=== PATIENT | male | born 1960 | race African-American/Black ===

== ENCOUNTER 2016-03-27 10:26 | Inpatient (IN) | payer BC, OTHER ==
[~2016-03-27] VITALS: Ht 193 cm; Wt 95.0 kg
[2016-03-27] MEDS ORDERED: SOD CHLORIDE 0.9% 500 ML IV STA (10:54)
[2016-03-27] MEDS ORDERED: ENOXAPARIN 100 MG/ML SYG SC STA (10:54)
[2016-03-27 12:12] LABS: POTASSIUM 4.2 mmol/L (3.5-5.1)
[2016-03-27 12:15] LABS: CREATININE 1.73 mg/dl (0.61-1.24)
[2016-03-27 12:28] LABS: BASOPHILS % 0.5 % (0.0-2.0); EOSINOPHILS # 0.7 10^3/ul (0.0-0.5); EOSINOPHILS % 6.3 % (0.0-7.0); HEMATOCRIT 48.1 % (42.0-52.0); HEMOGLOBIN 16.5 g/dl (14.0-18.0); LYMPHOCYTES # 2.7 10^3/ul (0.8-2.9); LYMPHOCYTES % 25.6 % (15.0-51.0); MEAN CORPUSCULAR HEMOGLOBIN 29.1 pg (29.0-33.0); MEAN CORPUSCULAR HGB CONC 34.3 g/dl (32.0-37.0); MEAN CORPUSCULAR VOLUME 84.9 fl (82.0-101.0); MEAN PLATELET VOLUME 8.4 fl (7.4-10.4); MONOCYTE # 0.7 10^3/ul (0.3-0.9); MONOCYTES % 6.4 % (0.0-11.0); NEUTROPHIL # 6.5 10^3/ul (1.6-7.5); NEUTROPHILS % 61.2 % (39.0-77.0); PLATELET COUNT 157 10^3/UL (140-440); RED BLOOD COUNT 5.66 10^6/ul (4.70-6.10); RED CELL DISTRIBUTION WIDTH 13.5 % (11.5-14.5); UNCORRECTED WBC 10.7 10^3/ul (4.8-10.8); WHITE BLOOD COUNT 10.7 10^3/ul (4.8-10.8)
[2016-03-27 12:31] LABS: CONDITION 1
[2016-03-27 12:33] LABS: TROPONIN-I 0.147 ng/ml (0.00-0.12)
[2016-03-27 12:36] LABS: PROTIME 14.2 Sec (12.2-14.2); PT RATIO 1.1
[2016-03-27 12:37] LABS: PARTIAL THROMBOPLASTIN TIME 30.2 Sec (25.0-35.0)
[2016-03-27 13:01] LABS: D-DIMER > 10000.00 ng/ml (<460)
--- NOTE | 2016-03-27 13:48 | ERA ---
ER Documentation Chief Complaint Date/Time DATE: 03/27/16 TIME: 13:42 Chief Complaint substernal chest pain with sob since 2 days. hx of PE. no n/v HPI This is a 56-year-old male with a history of pulmonary embolism. He states that 2 days ago he was on his porch when he suddenly had substernal chest pressure and shortness of breath and collapsed to the ground but did not lose consciousness. He laid there for a short time before the symptoms resolved. He says since that time if he walks he will get substernal chest pressure and dyspnea and he has to stop and rest and it goes away. The patient states this is exactly like his prior pulmonary embolism presentation. The patient states he has no medical problems and exercises 5-6 times a week and eats very healthy. Patient says he has no dyspnea at rest and no chest pain currently. ROS All systems reviewed and are negative except as per history of present illness. Medications Home Meds No Active Prescriptions or Reported Meds Allergies Allergies: Coded Allergies: No Known Allergy (Unverified , 03/27/16) PMhx/Soc History of Surgery: No Anesthesia Reaction: No Hx Neurological Disorder: No Hx Respiratory Disorders: Yes (PE 8 YRS AGO) Hx Cardiac Disorders: No Hx Psychiatric Problems: No Hx Miscellaneous Medical Probl: No Hx Alcohol Use: No Hx Substance Use: No Hx Tobacco Use: No Smoking Status: Never smoker FmHx Family History: No coronary disease Physical Exam Vitals Vital Signs Date Time Temp Pulse Resp B/P Pulse Ox O2 Delivery O2 Flow Rate FiO2 03/27/16 13:20 90 16 98/71 100 Room Air 03/27/16 11:19 Nasal Cannula 2 03/27/16 10:31 98.7 100 22 90/54 99 Physical Exam Const: Well-developed, well-nourished Head: Atraumatic, normocephalic Eyes: Normal Conjunctiva, PERRLA, EOMI, normal sclera, no nystagmus ENT: Normal External Ears, Nose and Mouth, moist mucus membranes. Neck: Full range of motion. No meningismus, no lymphadenopathy. Resp: Clear to auscultation bilaterally, no wheezing, rhonchi, rales Cardio: Regular rate and rhythm, no murmurs, S1 S2 present Abd: Soft, non tender x 4, non distended. Normal bowel sounds, no guarding or rebound, no pulsitile abdominal masses or bruits Skin: No petechiae or rashes, no ecchymosis , no maculopapular rash Back: No midline or flank tenderness Ext: No cyanosis, or edema, FROM x 4, normal inspection, neurovascularly intact x 4 Neur: Awake and alert, STR 5/5 x 4, sensation intact x 4, no focal findings, cerebellum intact Psych: Normal Mood and Affect Result Diagram: 03/27/16 1113 03/27/16 1113 Results 24 hrs Laboratory Tests Test 03/27/16 11:13 Activated Partial Thromboplast Time 30.2Sec Anion Gap 18 B-Type Natriuretic Peptide 2930PG/ML Basophils # 0.010^3/ul Basophils % 0.5% Blood Urea Nitrogen 21mg/dl Calcium Level 9.0mg/dl Carbon Dioxide Level 20mmol/L Chloride Level 108mmol/L Creatinine 1.73mg/dl D-Dimer > 87999.00ng/ml Eosinophils # 0.710^3/ul Eosinophils % 6.3% Glucose Level 110mg/dl Hematocrit 48.1% Hemoglobin 16.5g/dl INR International Normalized Ratio 1.10 Lymphocytes # 2.710^3/ul Lymphocytes % 25.6% Mean Corpuscular Hemoglobin 29.1pg Mean Corpuscular Hemoglobin Concent 34.3g/dl Mean Corpuscular Volume 84.9fl Mean Platelet Volume 8.4fl Monocytes # 0.710^3/ul Monocytes % 6.4% Neutrophils # 6.510^3/ul Neutrophils % 61.2% Nucleated Red Blood Cells # 0.010^3/ul Nucleated Red Blood Cells % 0.0/100WBC Platelet Count 89752^3/UL Potassium Level 4.2mmol/L Prothrombin Time 14.2Sec Prothrombin Time Ratio 1.1 Red Blood Count 5.6610^6/ul Red Cell Distribution Width 13.5% Sodium Level 142mmol/L Troponin I 0.147ng/ml White Blood Count 10.710^3/ul Current Medications Medications (Trade) Dose Ordered Sig/Lauren Route PRN Reason Start Time Stop Time Status Last Admin Dose Admin Sodium Chloride (NS) 500 ml @ 500 mls/hr Q1H STAT IV 03/27/16 10:54 03/27/16 11:53 DC 03/27/16 11:16 Enoxaparin Sodium (Lovenox) 100 mg ONCE STAT SC 03/27/16 10:54 03/27/16 10:56 DC 03/27/16 11:16 Aspirin (Aspirin) 325 mg ONCE STAT PO 03/27/16 13:54 03/27/16 13:55 DC Procedures/MDM EKG: Rate/Rhythm: Normal sinus rhythm heart rate 100, left axis deviation , Q waves in the inferior and anterior leads with inverted T waves in the inferior and precordial leads QRS, ST, QT: NORMAL FL, QRS, QT] Impression: Abnormal l EKG CT chest was ordered with contrast however his creatinine is 1.73. A VQ scan scan was subsequently ordered but is pending at this time. The patient was found to have an elevated troponin at 1.47. This patient may have had a pulmonary embolism causing myocardial infarction or there is no pulmonary embolism and his troponin is elevated purely due to cardiac etiology. His d-dimer is greater than 10,000. He was treated with Lovenox subcu, aspirin p.o. We will admit to the hospital for cardiac/pulmonary workup I suspect more that this could be cardiac as his EKG demonstrates Q waves suggesting old [place] or recent [place] Critical Care Time: 30 minutes Treatments/Evaluations: Close monitoring and treatment of unstable vital signs, cardiorespiratory, and neurologic status, while maintaining tight balance of fluid, respiratory, and cardiac interventions. This time includes discussing the case with the patient and the patient's family. This time does not include all procedures stated elsewhere in this record. This time also includes reviewing old records, labs and radiological studies. This time includes examining and re-examining the patient. Additionally, this time also includes arranging care with admitting and consulting physicians. Departure Diagnosis: Primary Impression: Myocardial infarction Qualified Code: I21.4 - Non-ST elevation (NSTEMI) myocardial infarction Condition: Stable MIKALA BAIN Mar 27, 2016 13:48
[2016-03-27] MEDS ORDERED: ASPIRIN 325 MG TAB PO STA (13:54)
[2016-03-27] MEDS ORDERED: SOD CHLORIDE 0.9% 1,000 ML IV SCH (14:06)
--- NOTE | 2016-03-27 14:21 | RADRPT ---
PROCEDURE: XR Chest 1 View. CLINICAL INDICATION: Chest pain TECHNIQUE: AP view of the chest were obtained. COMPARISON: None. FINDINGS: The heart size is within normal limits. Calcified atherosclerosis is noted in the aorta. The lungs are hyperexpanded. No consolidations are identified. No pneumothorax is seen. Osseous structures a re intact. IMPRESSION: Calcified atherosclerosis in the aorta. Hyperexpanded, clear lungs. RPTAT: AA .Vincent Carrasco MD, MD Date Time Electronically viewed and signed by .Vincent Carrasco MD, on 03/27/2016 14:21 .P/
[2016-03-27] MEDS: SOD CHLORIDE 0.9% 1,000 ML IV SCH (14:24)
[2016-03-27] MEDS ORDERED: ACETAMINOPHEN 325 MG TAB PO PRN ×2 (14:30)
[2016-03-27] MEDS ORDERED: ONDANSETRON 4 MG INJ IV PRN ×2 (14:30)
[2016-03-27] MEDS ORDERED: DOCUSATE SODIUM 100 MG CAP PO PRN (14:30)
[2016-03-27] MEDS ORDERED: morphine 2 MG INJ IV PRN (14:30)
[2016-03-27] MEDS ORDERED: hydrALAzine 20 MG INJ IV PRN (14:30)
[2016-03-27] MEDS ORDERED: LORAZEPAM 2 MG INJ IV PRN (14:30)
[2016-03-27] MEDS ORDERED: NITROGLYCERIN (SL) 0.4 MG TAB SL PRN (14:30)
[2016-03-27] MEDS ORDERED: NACL 0.9% 3 ML SYG IV SCH (14:30)
--- NOTE | 2016-03-27 14:51 | HP ---
Date/Time of Note Date/Time of Note DATE: 03/27/16 TIME: 14:41 Assessment/Plan VTE Prophylaxis VTE Prophylaxis Intervention: heparin Assessment/Plan Assessment/Plan 56 yo male with past medical history of pulmonary embolism who presents with acute chest pain and shortness of breath. 1. Chest pain/SOB - ACS vs PE - will admit the patient to telemetry, awaiting V/ Q scan, consult cardio, cycle cardiac markers, check TSH/Mag, morphine/oxygen/ NTG/Aspirin 2. Presyncope - will check carotid duplex 3. Elevated troponin - possible NSTEMI - with renal dysfunction - have to see trend - 4. Elevated BNP - could be right heart strain from PE vs new onset heart failure - awaiting 2D ECHO 5. Acute Renal Failure - possible ATN - will renally adjust medications, avoid nephrotoxins, if worsening, consider nephrology consult 6. GI ppx - pepcid 7. DVT ppx - heparin answered all of his questions. as per clinical course. this history and physical took greater then 45 minutes to complete HPI/ROS Admit Date/Time Admit Date/Time 03/27/2016, 2:41 pm Hx of Present Illness 56 yo male with past medical history of pulmonary embolism who presents with acute chest pain and shortness of breath. 03/25/2016, around 6 pm, the patient states he had acute chest pain, substernal, non-radiating, associated with his "legs giving out", 7/10 in intensity, with weakness and shortness of breath. He had collapsed to the floor without losing consciousness and had diaphoresis and dizziness. He stayed on the floor for about 2 1/2 hours, received aspirin and water from his friend. Otherwise denies any nausea/vomiting /diarrhea/constipation, fevers/chills, headaches, urinary/bowel irregularities or other constitutional symptoms. When he was diagnosed 7 years ago with a PE, he had similar type of presentation. He took coumadin only for 2 months after the PE. ED course: aspirin and lovenox - 1 mg/kg ROS 14 point review of systems completed, please refer to HPI for any positive findings PMH/Family/Social Past Medical History pulmonary embolism Past Surgical History Past Surgical Hx: no surgical history Family History Significant Family History: renal disease (mother) Social History Alcohol Use: rarely Smoking Status: Never smoker Drug Use: marijuana Exam/Review of Systems Vital Signs Vitals Vital Signs Date Time Temp Pulse Resp B/P Pulse Ox O2 Delivery O2 Flow Rate FiO2 03/27/16 13:20 90 16 98/71 100 Room Air 03/27/16 11:19 2 03/27/16 10:31 98.7 Exam Exam Gen Robert: mild pain 2/2 to chest discomfort, AAOx4 HEENT: NC/AT, PERRLA, EOMI, no pharyngeal erythema, no tonsillar exudates, no lymphadenopathy, no JVD, no carotid bruits NECK: supple, no thyromegaly THORAX: symmetrical, no obvious deformities CV: S1S2, RRR, no M/G/R Lungs: CTAB no W/C/R/R Abd: soft, NT/ND, +BS, no rebound, no guarding, neg HSM EXT: no edema, no ecchymosis, no clubbing, FROM Neuro: CN II-XII grossly intact, no focal deficits Psych: good mentation, alert and oriented, good mood and affect Skin: C/D/I Labs Result Diagram: 03/27/16 1113 03/27/16 1113 Medications Medications Current Medications Sodium Chloride 1,000 ml @ 80 mls/hr [id number] IV ; Start 03/27/16 at 14:06; Stop 03/28/16 at 02:35 Sodium Chloride (NS) 1,000 ml @ 50 mls/hr Q20H IV ; Start 03/27/16 at 14:24 Lorazepam (Ativan) 0.5 mg Q6H PRN IV ANXIETY; Start 03/27/16 at 14:30 Ondansetron HCl (Zofran Inj) 4 mg Q6H PRN IV NAUSEA AND/OR VOMITING; Start 03/27 at 14:30 Nitroglycerin (Nitroglycerin (Sl Tab) 0.4 Mg) 1 tab Q5M PRN SL CHEST PAIN; Start 03/27/16 at 14:30 Acetaminophen (Tylenol Tab) 650 mg Q6H PRN PO PAIN LEVEL 1-3 OR FEVER; Start at 14:30 Morphine Sulfate (morphine) 2 mg Q4H PRN IV PAIN LEVEL 7-10; Start 03/27/16 at 14:30 Docusate Sodium (Colace) 100 mg Q12H PRN PO CONSTIPATION; Start 03/27/16 at 14: 30 Famotidine (Pepcid) 20 mg Q12 PO ; Start 03/27/16 at 21:00 Heparin Sodium (Porcine) (Heparin (5000 Units/0.5 ml)) 5,000 unit Q12 SC ; Start 03/27/16 at 21:00 Hydralazine HCl (Apresoline) 10 mg Q6H PRN IV sbp > 160; Start 03/27/16 at 14:30 YASH GARCIA MD Mar 27, 2016 14:51
--- NOTE | 2016-03-27 15:51 | RADRPT ---
PROCEDURE: US Lower extremity Venous. CLINICAL INDICATION: Bilateral lower extremity swelling , history of pulmonary embolus TECHNIQUE: Multiple sonographic images of the bilateral lower extremity deep venous system was obt ained utilizing grayscale, color-flow, compressive sonography and doppler imaging with augmentation. The images were reviewed on a PACS workstation. COMPARISON: None. FINDINGS: There is normal compressibility and flow within the bilateral common femoral, superficial femoral , posterior tibial and popliteal veins. The right peroneal vein is not compressible, consistent with DVT. The left peroneal vein is patent. RPTAT: AA IMPRESSION: Right peroneal vein DVT. A call report was made and the findings discussed with nurse Bella at 03/27/2016 3:38:39 PM. .Franck Franco MD, Date Time Electronically viewed and signed by .Franck Franco MD, on 03/27/2016 15:51 .S/
--- NOTE | 2016-03-27 16:14 | RADRPT ---
PROCEDURE: US Carotids. CLINICAL INDICATION: bruit , syncope TECHNIQUE: Multiple sonographic of the carotid bifurcation region and vertebral arteries were obta ined utilizing hernandez scale, duplex and color-flow imaging. The images were reviewed on a PACS worksta tion. COMPARISON: No prior studies are available for comparison. FINDINGS: Evaluation of the right carotid bifurcation region reveals minimal calcific atherosclerotic disease. Evaluation of the left carotid bifurcation region reveals minimal calcific atherosclerotic disease. There is antegrade flow within the vertebral arteries bilaterally. RIGHT CAROTID MEASUREMENTS: Common Carotid Zsbslu44 (cm/sec) Internal Carotid Artery - pfeoczug10.9 (cm/sec) Internal Carotid Artery - mid39.9 (cm/sec) Internal Carotid Artery - fhauig64.7 (cm/sec) Internal Carotid/Common Carotid0.83 LEFT CAROTID MEASUREMENTS: Common Carotid Uudguh699.4 (cm/sec) Internal Carotid Artery - tvoaqepy41.6 (cm/sec) Internal Carotid Artery - mid60.6 (cm/sec) Internal Carotid Artery - rdxtii88.5 (cm/sec) Internal Carotid/Common Carotid0.8 RPTAT: AA IMPRESSION: No evidence for hemodynamically significant stenosis in the bilateral internal carotid arteries - va lidated velocity measurements with angiographic measurements, velocity criteria are extrapolated fro m diameter data as defined by the Society of Radiologists in Ultrasound Consensus Conference Radiolo gy 2003; 229;340-346. This study does indirectly reference the measurement of the distal ICA diamet er as the denominator for stenosis measurement. Normal antegrade flow in the vertebral arteries bilaterally. .Franck Franco MD, MD Date Time Electronically viewed and signed by .Franck Franco MD, on 03/27/2016 16:13 .S/
[2016-03-27] MEDS ORDERED: HEPARIN 1000 UNITS/ML 10 ML INJ IV PRN ×2 (16:30)
[2016-03-27 17:05] LABS: CK-MB 3.44 ng/ml (0.0-2.4)
[2016-03-27 17:14] LABS: BASOPHILS % 0.4 % (0.0-2.0); EOSINOPHILS # 0.5 10^3/ul (0.0-0.5); HEMOGLOBIN 15.8 g/dl (14.0-18.0); LYMPHOCYTES # 3.2 10^3/ul (0.8-2.9); LYMPHOCYTES % 27.7 % (15.0-51.0); MEAN CORPUSCULAR HEMOGLOBIN 28.8 pg (29.0-33.0); MEAN CORPUSCULAR HGB CONC 34.3 g/dl (32.0-37.0); MEAN PLATELET VOLUME 7.6 fl (7.4-10.4); MONOCYTE # 0.9 10^3/ul (0.3-0.9); MONOCYTES % 7.9 % (0.0-11.0); PLATELET COUNT 227 10^3/UL (140-440); RED BLOOD COUNT 5.47 10^6/ul (4.70-6.10); UNCORRECTED WBC 11.6 10^3/ul (4.8-10.8); WHITE BLOOD COUNT 11.6 10^3/ul (4.8-10.8)
--- NOTE | 2016-03-27 17:15 | RADRPT ---
PROCEDURE: Ventilation-perfusion lung scan CLINICAL INDICATION: 56 -year-old patient with shortness of breath. TECHNIQUE: Following the inhalation of approximately 1.0 mCi of Tc-99m stannous DTPA aerosol, vent ilation images were obtained. The patient was then given an intravenous injection of 5.3 mCi of Tc- 99m MAA, in perfusion images were obtained. COMPARISON: No prior VQ scans. Correlation was made with chest x-ray dated March 27, 2016. FINDINGS: Ventilation images demonstrate mildly nonhomogeneous distribution of activity in the lungs bilateral ly. Perfusion images reveal numerous partially mismatched perfusion defects in the right lung and, other ashby, matched nonhomogeneous distribution of activity in both lungs. The findings represent intermediate probability for pulmonary embolus. IMPRESSION: Intermediate probability for pulmonary embolus. A call report was made to the emergency room physician covering for Dr. Marin at 05:00 p.m. on 2016. RPTAT: HH .Silvia Arana MD, MD Date Time Electronically viewed and signed by .Silvia Arana MD, on 03/27/2016 17:03 .L/
--- NOTE | 2016-03-27 17:15 | RADRPT ---
Echocardiogram Report Patient Name: CHERISE TANG Gender: Male Date: 1960 Study Date: 27-Mar-2016 Chain Sales Consultant: Gifty Reyes RDCS Location: 2 Ref. Physician: YASH GARCIA Quality: Adequate Procedures: Transthoracic echocardiogram with complete 2D, M-Mode, and doppler examination. Indications: Chest Pain. 2D/M Mode Doppler Measurement Value Normal Ranges Measurement Value Normal Ranges LVIDd 2D 3.3 3.5 - 5.6 cm AV Peak Malvin 1.4 m/sec LVIDs 2D 1.9 2.1 - 4.1 cm AV Peak PG 8.0 mmHg FS 2D 41.1 % LVOT Peak Malvin 1.2 m/sec LVPWd 2D 1.3 0.6 - 1.1 cm LVOT Peak PG 6.0 mmHg IVSd 2D 1.2 0.6 - 1.1 cm MV E Peak Malvin 0.4 m/sec IVS/LVPW 2D 1.0 MV A Peak Malvin 0.6 m/sec AoR Diam 2D 2.7 2.0 - 3.7 cm MV E/A 0.6 LA/Ao 2D 1 0 - 1 MV Decel Time 130 msec EDV 2D 34.6 cm3 MV E/A 0.6 ESV 2D 7.1 cm3 TR Peak Malvin 3.9 m/sec LA Dimen 2D 3.5 2.3 - 4.0 cm TR Peak PG 60.0 mmHg RVSP 68.0 mmHg Findings Left Ventricle: Normal left ventricular systolic function. Normal left ventricular cavity size. Mild concentric left ventricular hypertrophy. Ejection fraction is visually estimated at 65 - 70 %. Tissue Doppler/Mitral Doppler indices are consistent with impaired relaxation (Stage I diastolic dysfunction). Right Ventricle: Moderate enlargement of right ventricle. Severe right ventricular hypokinesis. Flattened septum in systole and diastole consistent with increased RV pressure and volume overload. Left Atrium: The left atrium is normal in size. Right Atrium: There is moderate enlargement of right atrium. Mitral Valve: Mitral valve leaflets appear mildly thickened. Mild mitral annular calcification. Trace mitral regurgitation. Aortic Valve: Normal appearance of the aortic valve. No significant aortic stenosis or insufficiency. Tricuspid Valve: Normal appearance of the tricuspid valve. Estimated peak PA systolic pressure 68 mmHg. There is moderate tricuspid regurgitation. Pericardium: Normal pericardium with no significant pericardial effusion. Aorta: Normal aortic root. IVC: Dilated IVC with respiratory collapse consistent with elevated right atrial pressure. Conclusions 1.Normal left ventricular systolic function. Normal left ventricular cavity size. Mild concentric left ventricular hypertrophy. Ejection fraction is visually estimated at 65 - 70 %. Tissue Doppler/Mitral Doppler indices are consistent with impaired relaxation (Stage I diastolic dysfunction). 2.Moderate enlargement of right ventricle. Severe right ventricular hypokinesis. Flattened septum in systole and diastole consistent with increased RV pressure and volume overload. 3.There is moderate enlargement of right atrium. 4.Mitral valve leaflets appear mildly thickened. Mild mitral annular calcification. Trace mitral regurgitation. 5.Normal appearance of the aortic valve. No significant aortic stenosis or insufficiency. 6.Normal appearance of the tricuspid valve. Estimated peak PA systolic pressure 68 mmHg. There is moderate tricuspid regurgitation. 7.Dilated IVC with respiratory collapse consistent with elevated right atrial pressure. Electronically Signed By: Tavo Horton 27-Mar-2016 17:01:13 0800 Patient Name: CHERISE TANG Study Date: 27-Mar-2016 [id number]
[2016-03-27 17:16] LABS: INR 1.14; PROTIME 14.6 Sec (12.2-14.2); PT RATIO 1.1
[2016-03-27 17:17] LABS: PARTIAL THROMBOPLASTIN TIME 38.8 Sec (25.0-35.0)
[2016-03-27 17:20] LABS: CONDITION 1
[2016-03-27 17:32] LABS: CHOL/HDL RATIO 3.4 RATIO
[2016-03-27 17:45] LABS: CK-MB 3.23 ng/ml (0.0-2.4); TROPONIN-I 0.153 ng/ml (0.00-0.12)
[2016-03-27 17:53] LABS: THYROID STIMULATING HORMONE 3.53 MIU/L (0.465-4.680)
[2016-03-27] MEDS: HEPARIN 25000 UNITS/250 ML 250 ML IV SCH (18:02)
--- NOTE | 2016-03-27 18:10 | CONS ---
DATE OF ADMISSION: 03/27/2016 DATE OF CONSULTATION: 03/27/2016 TYPE OF CONSULTATION: Cardiology. REASON FOR CONSULTATION: Abnormal troponin. CHIEF COMPLAINT: Chest pain, dyspnea. HISTORY OF PRESENT ILLNESS: Thank you for this referral. History obtained from the patient, daniel benitezon with Dr. Lara and review of the chart. This is a pleasant 56-year-old -Faroese cami sánchez with history of PE about 7 years ago, who came to emergency room with complaint of mostly dysp diana. The patient said that 2 days ago he had severe dyspnea with unlimited activity, also chest darrell n. He stated he did not come into the hospital because "he knew what it was" and he thought that it was his PE again. The chest pain anteriorly was getting worse with activity, in fact, any activity would give short of breath and chest discomfort. The patient had called his "doctor" whom he had n ot seen for 2 years and found out on Sunday that his doctor has already retired. At this point, he decided to come to the emergency room. His troponin has been mildly elevated, for which I was kindl y asked to evaluate for him in consult. He was comfortable and has been saturating well. PAST MEDICAL HISTORY: Pulmonary embolus. SOCIAL HISTORY: The patient denies any heavy alcohol or tobacco use to me. Has used marijuana in t he past. FAMILY HISTORY: No reported coronary artery disease. MEDICATIONS AT HOME: None. He has been taking aspirin lately. REVIEW OF SYSTEMS: As above mentioned, denied all other. PHYSICAL EXAMINATION: VITAL SIGNS: Temperature 97.7, heart rate of 92, blood pressure 102/73, respiration rate of 18, sat urating 100% on room air. HEENT: Normocephalic, atraumatic. No acute distress. Pupils are equal and round. CARDIOVASCULAR: Regular rate and rhythm, systolic murmur. PULMONARY: No wheezes heard. No rhonchi. GASTROINTESTINAL: Soft, nontender. EXTREMITIES: No significant lower extremity edema. NEUROLOGIC: Awake, alert x3. PSYCHIATRIC: Calm, pleasant. LABORATORY: EKG was personally reviewed, showed normal sinus rhythm, slight sinus tachycardia with T wave abnormalities with anterior ischemia, etiology of which undetermined. Echocardiogram was per sonally reviewed, which showed normal LV size and ejection fraction of 65% to 70%. Right-sided ozzy mbers appeared to be dilated up with PA pressure elevated at 68 mmHg. VQ scan showed intermediate p robability for pulmonary embolus. Lower extremity ultrasound shows right peroneal vein DVT. Chest x-ray shows hyperexpanded lungs, otherwise clear lungs. LABORATORY DATA: Sodium 142, potassium 4.2, BUN 21, creatinine 1.73, glucose 110. CK 126, MB fract ion of 3.44. Troponin 0.147. ProBNP of 2930. ASSESSMENT AND PLAN: 1. Mildly abnormal troponin, most likely related to pulmonary embolus. Rule out non-ST elevation m yocardial infarction. 2. Lower extremity deep venous thrombosis. 3. History of pulmonary embolism and probably recurrence of PE at this point. 4. Pulmonary hypertension, probably related to above. 5. Renal failure, unclear etiology. RECOMMENDATIONS: The patient has been placed on intravenous anticoagulation. We will repeat the ca rdiac enzymes. I will keep the patient n.p.o. after breakfast and once a day for more information i f I decide to continue medical therapy for embolus or if the troponin continues to rise, significant ly, we will consider cardiac catheterization. Consider pulmonary consultation as well. Thank you for this referral. We will continue to follow along with you. Discussed with Dr. Lara . Dictated By: DAYA CORREA/NELIDA Conf#: [id number] DID#: [id number]
[2016-03-27 19:57] VITALS: BP 107/64; RESP 18
[2016-03-27 20:00] VITALS: Ht 193 cm; Wt 95.0 kg
[2016-03-27 20:19] VITALS: PULSE 92
[2016-03-27] MEDS ORDERED: HEPARIN 5,000 UNIT/0.5 ML SYG SC SCH (21:00)
[2016-03-27] MEDS: FAMOTIDINE 20 MG TAB PO SCH (21:05)
[2016-03-27 21:43] LABS: CK-MB 2.63 ng/ml (0.0-2.4)
[2016-03-27 21:46] LABS: TROPONIN-I 0.15 ng/ml (0.00-0.12)
[2016-03-27 23:57] VITALS: BP 97/55; RESP 19
[2016-03-28 00:16] VITALS: PULSE 93
[2016-03-28] MEDS: HEPARIN 25000 UNITS/250 ML 250 ML IV SCH (03:24)
[2016-03-28 03:55] VITALS: BP 117/64; RESP 18
[2016-03-28 04:24] VITALS: PULSE 81
[2016-03-28 07:39] LABS: POTASSIUM 3.9 mmol/L (3.5-5.1)
[2016-03-28 07:41] LABS: CREATININE 1.61 mg/dl (0.61-1.24)
[2016-03-28 07:42] LABS: CALCIUM 8.5 mg/dl (8.4-10.2)
[2016-03-28 07:48] LABS: BASOPHIL # 0.1 10^3/ul (0.0-0.1); BASOPHILS % 0.4 % (0.0-2.0); EOSINOPHILS # 0.7 10^3/ul (0.0-0.5); HEMATOCRIT 44.9 % (42.0-52.0); HEMOGLOBIN 15.3 g/dl (14.0-18.0); LYMPHOCYTES # 4.9 10^3/ul (0.8-2.9); LYMPHOCYTES % 41.3 % (15.0-51.0); MEAN CORPUSCULAR VOLUME 85.3 fl (82.0-101.0); MONOCYTE # 0.8 10^3/ul (0.3-0.9); MONOCYTES % 6.8 % (0.0-11.0); NEUTROPHIL # 5.4 10^3/ul (1.6-7.5); NEUTROPHILS % 45.5 % (39.0-77.0); PLATELET COUNT 218 10^3/UL (140-440); RED BLOOD COUNT 5.26 10^6/ul (4.70-6.10); UNCORRECTED WBC 11.9 10^3/ul (4.8-10.8); WHITE BLOOD COUNT 11.9 10^3/ul (4.8-10.8)
[2016-03-28 07:51] VITALS: BP 114/64; RESP 20
[2016-03-28 07:57] LABS: CONDITION 1
[2016-03-28] MEDS: FAMOTIDINE 20 MG TAB PO SCH (08:08)
[2016-03-28 08:30] VITALS: PULSE 88
[2016-03-28 08:57] LABS: INR 1.13; PROTIME 14.5 Sec (12.2-14.2); PT RATIO 1.1
[2016-03-28 09:29] LABS: CK-MB 2.25 ng/ml (0.0-2.4); TROPONIN-I 0.098 ng/ml (0.00-0.12)
[2016-03-28 10:11] LABS: ALBUMIN 3.3 g/dl (3.3-4.9)
[2016-03-28 10:12] LABS: POTASSIUM 3.9 mmol/L (3.5-5.1)
[2016-03-28 10:13] LABS: CREATININE 1.58 mg/dl (0.61-1.24)
[2016-03-28 10:14] LABS: ALBUMIN/GLOBULIN RATIO 0.97; BILIRUBIN,INDIRECT 0.1 mg/dl (0-1.1); BILIRUBIN,TOTAL 0.1 mg/dl (0.2-1.3); CALCIUM 8.7 mg/dl (8.4-10.2); TOTAL PROTEIN 6.7 g/dl (6.1-8.1)
[2016-03-28 10:15] LABS: CHOL/HDL RATIO 3.6 RATIO
[2016-03-28] MEDS: SOD CHLORIDE 0.9% 1,000 ML IV SCH (10:24)
--- NOTE | 2016-03-28 10:41 | CONS ---
Date/Time of Note Date/Time of Note DATE: 03/28/16 TIME: 10:31 Assessment/Plan Assessment/Plan Additional Assessment/Plan 2D echocardiogram report was reviewed patient does have significant elevation in right ventricular pressure which is likely a chronic finding as with such high pressure patient would have acutely decompensated. Assessment and recommendations; 1. Patient admitted with right peroneal vein DVT with indeterminate intermediate probability VQ scan. 2. Prior history of DVT and PE. 3. Strong family history of DVT. 4. Elevation in troponin possibly from ventricular strain. If cleared by cardiology, patient can be discharged home on Eliquis to be used lifelong ,this was emphasized to the patient in detail. Consultation Date/Type/Reason Admit Date/Time 03/27/2016, 2:41 pm Date of Consultation: Mar 28, 2016 Type of Consultation: Pulmonary Reason for Consultation Pulmonary consultation obtained for evaluation of pulmonary embolism. History of presenting illness. Mr. Lewis is a pleasant 56-year-old F [place] male who came into the emergency room yesterday with shortness of breath going on for the last month and a half acute shortness of breath with started 2 days before on Sunday patient denies any neck pain upon evaluation in ER the patient was diagnosed with right peroneal vein DVT as well as possibly pulmonary embolism. Patient has been experiencing some shortness of breath over the last month and a half but according to him he just got severe on Sunday this past weekend patient also complains of chest tightness and some chest pressure as well. Over the last 24 hours the symptoms have markedly improved and patient denies any further shortness of breath he denies any leg pain. Next Past medical history; 1. History of DVT and PE 7 years ago. Patient took Coumadin only for 2 months and stopped it on his own. 2. No show any coronary artery disease any surgeries. Medications; Were reviewed. Next Allergies; none next Social history; no history of any smoking alcohol or drug abuse. Next Family history; patient is single he does not have any children. There is a strong family history of DVT and PE. Occupational history; patient is a musician. Travel and hobbies; recently traveled from [place] in January. And according to him he been having some shortness of breath ever since then. Next Review of systems; denies any headache, seizures, visual changes, sinus symptoms. Any hearing loss. Chest pain has resolved. Denies any further shortness of breath. Any cough, hemoptysis, sputum production. Denies any abdominal pain, nausea, vomiting. Denies any melena, hematochezia, melena. Denies any urinary symptoms. Denies any leg pain, any swelling. Past Surgical History Past Surgical Hx: no surgical history Social History Alcohol Use: rarely Smoking Status: Never smoker Drug Use: marijuana Exam/Review of Systems Vital Signs Vitals Vital Signs Date Time Temp Pulse Resp B/P Pulse Ox O2 Delivery O2 Flow Rate FiO2 03/28/16 08:30 88 03/28/16 07:51 98.4 20 114/64 96 03/27/16 18:38 Room Air 14.0 Intake and Output 03/27/16 03/27/16 03/28/16 15:00 23:00 07:00 Intake Total 30 ml Balance 30 ml Exam HEENT examination; supple neck, no JVD. No lymphadenopathy. Pharynx is clear. Good dentition. Pupils are midsize reactive to light bilaterally. Chest examination; clear to auscultation bilaterally. S1-S2 audible. No gallop. Regular rate and rhythm. Abdomen examination; soft, nontender bowel sounds audible no organomegaly. Extremity examination; no peripheral edema. No calf tenderness. Pulses 1+ bilaterally. No clubbing. FILTER [employer]ER examination; there is no focal deficit. Results Result Diagram: 03/28/16 0647 03/28/16 0657 Results 24 hrs Laboratory Tests Test 03/27/16 11:13 03/27/16 16:56 03/27/16 21:00 03/28/16 00:40 Activated Partial Thromboplast Time 30.2 38.8 H 155.1 *H Anion Gap 18 H B-Type Natriuretic Peptide 2930 H Basophils # 0.0 0.0 Basophils % 0.5 0.4 Blood Urea Nitrogen 21 H Calcium Level 9.0 Carbon Dioxide Level 20 L Chloride Level 108 Cholesterol Level 150 Cholesterol/HDL Ratio 3.4 Creatine Kinase 126 110 110 Creatinine 1.73 H Creatinine Kinase MB (Mass) 3.44 H 3.23 H 2.63 H D-Dimer > 57551.00 H Eosinophils # 0.7 H 0.5 Eosinophils % 6.3 4.0 Glucose Level 110 HDL Cholesterol 44 Hematocrit 48.1 46.0 Hemoglobin 16.5 15.8 Hemoglobin A1c 5.8 INR International Normalized Ratio 1.10 1.14 LDL Cholesterol, Calculated 84 Lymphocytes # 2.7 3.2 H Lymphocytes % 25.6 27.7 Magnesium Level 2.0 Mean Corpuscular Hemoglobin 29.1 28.8 L Mean Corpuscular Hemoglobin Concent 34.3 34.3 Mean Corpuscular Volume 84.9 84.0 Mean Platelet Volume 8.4 7.6 Monocytes # 0.7 0.9 Monocytes % 6.4 7.9 Neutrophils # 6.5 7.0 Neutrophils % 61.2 60.0 Nucleated Red Blood Cells # 0.0 0.0 Nucleated Red Blood Cells % 0.0 0.0 Platelet Count 157 227 # Potassium Level 4.2 Prothrombin Time 14.2 14.6 H Prothrombin Time Ratio 1.1 1.1 Red Blood Count 5.66 5.47 Red Cell Distribution Width 13.5 14.0 Sodium Level 142 Thyroid Stimulating Hormone (TSH) 3.530 Triglycerides Level 109 Troponin I 0.147 *H 0.153 *H 0.150 *H White Blood Count 10.7 11.6 H Blood Morphology Comment Creatine Kinase Index 2.9 2.4 Test 03/28/16 06:08 03/28/16 06:47 03/28/16 06:57 Anion Gap 16 19 H Blood Urea Nitrogen 20 20 Calcium Level 8.5 8.7 Carbon Dioxide Level 22 20 L Chloride Level 110 109 Creatine Kinase 98 Creatine Kinase Index 2.3 Creatinine 1.61 H 1.58 H Creatinine Kinase MB (Mass) 2.25 Glucose Level 90 91 Potassium Level 3.9 3.9 Sodium Level 144 144 Troponin I 0.098 Basophils # 0.1 Basophils % 0.4 Eosinophils # 0.7 H Eosinophils % 6.0 Hematocrit 44.9 Hemoglobin 15.3 Lymphocytes # 4.9 H Lymphocytes % 41.3 Mean Corpuscular Hemoglobin 29.0 Mean Corpuscular Hemoglobin Concent 34.0 Mean Corpuscular Volume 85.3 Mean Platelet Volume 8.0 Monocytes # 0.8 Monocytes % 6.8 Neutrophils # 5.4 Neutrophils % 45.5 Nucleated Red Blood Cells # 0.0 Nucleated Red Blood Cells % 0.0 Platelet Count 218 Red Blood Count 5.26 Red Cell Distribution Width 14.0 White Blood Count 11.9 H Activated Partial Thromboplast Time 71.3 *H Alanine Aminotransferase (ALT/SGPT) 26 Albumin 3.3 Albumin/Globulin Ratio 0.97 Alkaline Phosphatase 67 Aspartate Amino Transf (AST/SGOT) 43 Cholesterol Level 146 Cholesterol/HDL Ratio 3.6 Direct Bilirubin 0.00 Globulin 3.40 H HDL Cholesterol 40 INR International Normalized Ratio 1.13 Indirect Bilirubin 0.1 LDL Cholesterol, Calculated 91 Magnesium Level 2.0 Prothrombin Time 14.5 H Prothrombin Time Ratio 1.1 Thyroid Stimulating Hormone (TSH) Pending Total Bilirubin 0.1 L Total Protein 6.7 Triglycerides Level 74 Medications Medications Current Medications Sodium Chloride (NS) 1,000 ml @ 50 mls/hr Q20H IV ; Start 03/27/16 at 14:24 Lorazepam (Ativan) 0.5 mg Q6H PRN IV ANXIETY; Start 03/27/16 at 14:30 Ondansetron HCl (Zofran Inj) 4 mg Q6H PRN IV NAUSEA AND/OR VOMITING; Start 03/27 at 14:30 Nitroglycerin (Nitroglycerin (Sl Tab) 0.4 Mg) 1 tab Q5M PRN SL CHEST PAIN; Start 03/27/16 at 14:30 Acetaminophen (Tylenol Tab) 650 mg Q6H PRN PO PAIN LEVEL 1-3 OR FEVER; Start at 14:30 Morphine Sulfate (morphine) 2 mg Q4H PRN IV PAIN LEVEL 7-10; Start 03/27/16 at 14:30 Docusate Sodium (Colace) 100 mg Q12H PRN PO CONSTIPATION; Start 03/27/16 at 14: 30 Famotidine (Pepcid) 20 mg Q12 PO Last administered on 03/28/16t 08:08; Admin Dose 20 MG; Start 03/27/16 at 21:00 Hydralazine HCl (Apresoline) 10 mg Q6H PRN IV sbp > 160; Start 03/27/16 at 14:30 JOSE ANTONIO KENDALL Mar 28, 2016 10:41
[2016-03-28 10:44] LABS: THYROID STIMULATING HORMONE 2.87 MIU/L (0.465-4.680)
[2016-03-28] MEDS ORDERED: APIX5TAB PO (10:47)
[2016-03-28] MEDS ORDERED: ASPI-664 PO (10:47)
--- NOTE | 2016-03-28 10:48 | PDOCDIS ---
Discharge Instructions DIAGNOSIS Discharge Diagnosis: PE/DVT CONDITION Patient Condition: Stable HOME CARE INSTRUCTIONS: Diet Instructions: 2gm NaSpecial Diet: npo ACTIVITY: Activity Restrictions: Slowly Increase Activity Rest between Activity Avoid heavy lifting FOLLOW UP/APPOINTMENTS Appointments follow up with primary care physician Dr. Hernandez in one week. Follow up with Cardiology for outpatient angiogram. OTHER ORDERS: Other Orders: PE/DVT - take the eliquis as prescribed lifelong YASH GARCIA MD Mar 28, 2016 10:48
[2016-03-28 11:32] VITALS: BP 137/60; RESP 20
--- NOTE | 2016-03-28 11:50 | DS ---
DATE OF ADMISSION: 03/27/2016 DATE OF DISCHARGE: 03/28/2016 DISCHARGE DIAGNOSES: 1. Chest pain, shortness of breath secondary to acute PE and DVT, presyncope ruled out. Elevated t roponin is demand ischemia, elevated BMP of the right heart strain secondary to PE, acute renal insu fficiency on chronic. HOSPITAL COURSE: A 56-year-old male with past medical history of pulmonary embolism, presents with acute chest pain, shortness of breath, admitted to telemetry for further evaluation and treatment. Cardiology and pulmonology were consulted at this time. The patient was ruled out for syncope as we ll. A 2D echocardiogram was completed showin. Normal left ventricular systolic function, normal left ventricular cavity size, mild concentric left ventricular hypertrophy, ejection fraction visually estimated at 65 to 70%, stage I diastolic d ysfunction. 2. Moderate enlargement of right ventricle, severe right ventricular hypokinesis. Flattened septum in systole and diastole consistent with increased RV pressure and volume overload. 3. There is a moderate enlargement of right atrium. 4. Mitral valve leaflets appear mildly thickened, mild mitral annular calcification, trace mitral r egurgitation. 5. Normal appearance of the aortic valve, no significant aortic stenosis or insufficiency. 6. Normal appearance of the tricuspid valve. Estimated peak PA systolic pressure of 68 mmHg. Ther e is moderate tricuspid regurgitation. 7. Dilated IVC with respiratory collapse consistent with elevated right atrial pressure. Initial i maging, he had a chest x-ray showing calcified atherosclerosis of the aorta, hyperexpanded clear debby gs. A lung VQ scan has intermittent probability for pulmonary embolus. Patient was started on hepa rin drip. Carotid duplex was also done showing no evidence for hemodynamic significant stenosis in the bilater al internal carotid arteries validated with velocity measurements and angiographic measurements, and a venous duplex bilaterally showed right peroneal vein DVT, chronic. Initial laboratory findings s howed a white count 10.7, went as high as 1.9 which is reactive. H and H has been stable. Platelet s have been stable. Chemistry initially had shown that BUN and creatinine 21 and 1.73. Troponin w as 0.147. BNP of 2930. His current troponin went down to 0.153, 0.150 and 0.098. Current BUN and creatinine is 20 and 1.58 today. Coags had showed an increased PTT secondary to being on heparin dr ip, otherwise within normal limits. D-dimer is greater than 10,000. On the day of discharge, the patient's overall function is improved, shortness of breath has resolve d. No other acute complaints. Patient was scheduled for angiogram, but because of downtrending tro ponins at this time, will defer to outpatient, which he wants at this time. Patient understands colleen t he will still need one as an outpatient. At this time, he will be placed on Eliquis. Agree with plan. DISPOSITION: Home. CONDITION: Stable. DISCHARGE MEDICATIONS: Include: 1. Eliquis 10 mg p.o. b.i.d. for the next 7 days and then 5 mg p.o. b.i.d. for lifelong. 2. Aspirin 81 mg p.o. daily. FOLLOWUP: The patient will follow up with his primary care physician within a week. Will follow [facility] cardiology for an angiogram as an outpatient. The patient and consultants were made aware of thi s and agree with the plan. COORDINATION OF DISCHARGE: Greater than 40 minutes. Dictated By: YASH BISHOP/NELIDA Conf#: [id number] DID#: [id number]
== END 2016-03-28 11:30 | disposition home or self-care (01) | DRG 176 ==
LOC: E/R 10:26 → TEL 19:53
PROVIDERS: ADMIT Family Medicine; ATTEND Family Medicine
DX: I26.99 Other pulmonary embolism without acute cor pulmonale (principal); N17.9 Acute kidney failure, unspecified; I24.8 Other forms of acute ischemic heart disease; I27.2 Other secondary pulmonary hypertension; I82.4Z1 Acute embolism and thrombosis of unspecified deep veins of right distal lower extremity; Z86.711 Personal history of pulmonary embolism; Z86.718 Personal history of other venous thrombosis and embolism; Z82.49 Family history of ischemic heart disease and other diseases of the circulatory system; I08.1 Rheumatic disorders of both mitral and tricuspid valves; I51.7 Cardiomegaly; I51.89 Other ill-defined heart diseases; N18.9 Chronic kidney disease, unspecified; Z79.82 Long term (current) use of aspirin; Z79.01 Long term (current) use of anticoagulants
CPT/HCPCS: 36415; 71010; 78582; 80048; 80053; 80061; 82550; 82553; 83036; 83735; 83880; 84443; 84484; 85025; 85378; 85610; 85730; 93005; 93306; 93880; 93970; 96372; 96374; A9539; A9540; J1644; J1650; J7030; J7040